=== PATIENT | male | born 1960 | race African-American/Black ===

== ENCOUNTER 2016-07-03 11:49 | Inpatient (IN) | payer MEDICAID, OTHER ==
[~2016-07-03] VITALS: Ht 167.6 cm; Wt 67.3 kg
[~2016-07-03 11:49] MED LIST: LISI-661 PO; OMEG1CAP12 PO; SIMV20 PO
[2016-07-03 12:18] LABS: BASOPHILS % (AUTO) 1.4 % (0.0-2.0); EOSINOPHILS % (AUTO) 4.3 % (1.0-6.0); HEMATOCRIT 43.4 % (41-53); HEMOGLOBIN 13.5 g/dL (13.5-17.5); LYMPHOCYTES # (AUTO) 2.9 K/uL (1.0-4.8); LYMPHOCYTES % (AUTO) 29.8 % (22.0-44.0); MEAN CORPUSCULAR HEMOGLOBIN 23.5 pg (26.0-34.0); MEAN CORPUSCULAR HGB CONC 31.1 G/dL (31.0-37.0); MEAN CORPUSCULAR VOLUME 76 fL (80-100); MONOCYTES # (AUTO) 0.7 K/uL (0.1-1.0); MONOCYTES % (AUTO) 7.3 % (2.0-9.0); NEUTROPHILS # (AUTO) 5.5 K/uL (1.8-7.7); NEUTROPHILS % (AUTO) 57.2 % (40.0-70.0); PLATELET COUNT (AUTO) 278 K/uL (150-450); RED BLOOD CELL COUNT(AUTO) 5.74 MIL/uL (4.50-5.90); RED CELL DISTRIBUTION WIDTH 14.4 % (11.5-14.5); WHITE BLOOD COUNT (AUTO) 9.6 K/uL (4.5-11.0)
[2016-07-03 12:27] LABS: ANION GAP 13 mmol/L (8-16); CALCIUM, TOTAL 9.3 mg/dL (8.8-10.5); CARBON DIOXIDE 24 mmol/L (22-29); CHLORIDE 106 mmol/L (98-107); GLOMERULAR FILTR. RATE CALC > 60 mL/min (>60); POTASSIUM 4.5 mmol/L (3.5-5.1); SODIUM SERUM 143 mmol/L (136-145); UREA NITROGEN, BLOOD 12 mg/dL (7-18)
[2016-07-03 12:32] LABS: GLUCOSE,POINT OF CARE 120 MG/DL (70-110)
[2016-07-03 12:33] LABS: ALANINE AMINOTRANSFERASE 28 U/L (12-78); ALBUMIN 4.2 g/dL (3.4-5.0); ASPARTATE AMINOTRANSFERASE 20 U/L (15-37); BILIRUBIN,TOTAL 0.5 mg/dL (0.1-1.0); TOTAL PROTEIN, SERUM 7.8 g/dL (6.4-8.2)
[2016-07-03] MEDS ORDERED: ZOLPIDEM TARTRATE 10 MG TABLET PO PRN (12:45)
[2016-07-03 18:20] VITALS: BP 146/86
[2016-07-04 08:30] VITALS: BP 132/76
[2016-07-04] MEDS: LORazepam 2 MG TABLET PO PRN (08:52)
[2016-07-04] MEDS: HALOPERIDOL 5 MG TABLET PO PRN (08:52)
[2016-07-04] MEDS: LISINOPRIL 10 MG TABLET PO SCH (15:25)
[2016-07-04] MEDS: FISH OIL/OMEGA-3 FATTY ACIDS 500 MG CAPSULE PO SCH (15:30)
[2016-07-04 19:32] VITALS: BP 129/79
[2016-07-04] MEDS: SIMVASTATIN 20 MG TABLET PO SCH (20:48)
[2016-07-05 07:38] LABS: CHOL/HDL RATIO 4.3 (4.2-7.3)
[2016-07-05 08:01] VITALS: BP 108/68
[2016-07-05] MEDS: LISINOPRIL 10 MG TABLET PO SCH (08:46)
[2016-07-05] MEDS: ESCITALOPRAM OXALATE 10 MG TABLET PO SCH (08:46)
[2016-07-05] MEDS: FISH OIL/OMEGA-3 FATTY ACIDS 500 MG CAPSULE PO SCH (08:47)
[2016-07-05] MEDS: ARIPiprazole 10 MG TABLET PO SCH (08:47)
[2016-07-05 18:25] VITALS: BP 110/71
[2016-07-05] MEDS: SIMVASTATIN 20 MG TABLET PO SCH (20:55)
[2016-07-05] MEDS: LORazepam 2 MG TABLET PO PRN (20:55)
[2016-07-06 08:01] VITALS: BP 114/99
[2016-07-06] MEDS: LISINOPRIL 10 MG TABLET PO SCH (09:18)
[2016-07-06] MEDS: ARIPiprazole 10 MG TABLET PO SCH (09:18)
[2016-07-06] MEDS: ESCITALOPRAM OXALATE 10 MG TABLET PO SCH (09:18)
[2016-07-06] MEDS: FISH OIL/OMEGA-3 FATTY ACIDS 500 MG CAPSULE PO SCH (09:19)
[2016-07-06] MEDS: LORazepam 2 MG TABLET PO PRN (16:04)
[2016-07-06] MEDS: GABAPENTIN 100 MG CAPSULE PO SCH (16:04)
[2016-07-06] MEDS: HALOPERIDOL 5 MG TABLET PO PRN (16:04)
[2016-07-06] MEDS: SIMVASTATIN 20 MG TABLET PO SCH (20:32)
[2016-07-06 20:56] VITALS: BP 116/89
[2016-07-07 06:14] VITALS: BP 140/76
[2016-07-07 08:30] VITALS: BP 118/76
[2016-07-07] MEDS: ESCITALOPRAM OXALATE 10 MG TABLET PO SCH (09:03)
[2016-07-07] MEDS: GABAPENTIN 100 MG CAPSULE PO SCH ×3 (09:03→15:59)
[2016-07-07] MEDS: ARIPiprazole 10 MG TABLET PO SCH (09:03)
[2016-07-07] MEDS: FISH OIL/OMEGA-3 FATTY ACIDS 500 MG CAPSULE PO SCH (09:03)
[2016-07-07] MEDS: LISINOPRIL 10 MG TABLET PO SCH (09:04)
[2016-07-07 16:30] VITALS: BP 128/78
[2016-07-07] MEDS: SIMVASTATIN 20 MG TABLET PO SCH (20:19)
[2016-07-08 06:52] VITALS: BP 138/80
[2016-07-08 08:05] VITALS: BP 146/78
[2016-07-08] MEDS: ARIPiprazole 10 MG TABLET PO SCH (09:02)
[2016-07-08] MEDS: FISH OIL/OMEGA-3 FATTY ACIDS 500 MG CAPSULE PO SCH (09:02)
[2016-07-08] MEDS: ESCITALOPRAM OXALATE 20 MG TABLET PO SCH (09:03)
[2016-07-08] MEDS: GABAPENTIN 100 MG CAPSULE PO SCH ×3 (09:03→16:03)
[2016-07-08] MEDS: LISINOPRIL 10 MG TABLET PO SCH (09:03)
[2016-07-08 18:41] VITALS: BP 153/88
[2016-07-08] MEDS: SIMVASTATIN 20 MG TABLET PO SCH (20:05)
[2016-07-09 06:21] VITALS: BP 132/83
[2016-07-09 08:36] VITALS: BP 145/76
[2016-07-09] MEDS: ARIPiprazole 10 MG TABLET PO SCH (08:39)
[2016-07-09] MEDS: GABAPENTIN 100 MG CAPSULE PO SCH ×3 (08:39→18:36)
[2016-07-09] MEDS: LISINOPRIL 10 MG TABLET PO SCH (08:39)
[2016-07-09] MEDS: ESCITALOPRAM OXALATE 20 MG TABLET PO SCH (08:39)
[2016-07-09] MEDS: FISH OIL/OMEGA-3 FATTY ACIDS 500 MG CAPSULE PO SCH (08:39)
[2016-07-09 17:51] VITALS: BP 136/82
[2016-07-09] MEDS: SIMVASTATIN 20 MG TABLET PO SCH (20:36)
[2016-07-10 08:15] VITALS: BP 152/90
[2016-07-10] MEDS: GABAPENTIN 100 MG CAPSULE PO SCH ×3 (09:46→17:16)
[2016-07-10] MEDS: LISINOPRIL 10 MG TABLET PO SCH (09:46)
[2016-07-10] MEDS: ESCITALOPRAM OXALATE 20 MG TABLET PO SCH (09:46)
[2016-07-10] MEDS: ARIPiprazole 10 MG TABLET PO SCH (09:46)
[2016-07-10] MEDS: FISH OIL/OMEGA-3 FATTY ACIDS 500 MG CAPSULE PO SCH (09:46)
[2016-07-10 18:32] VITALS: BP 139/82
[2016-07-10] MEDS: SIMVASTATIN 20 MG TABLET PO SCH (20:08)
[2016-07-11 05:16] VITALS: BP 144/88
[2016-07-11] MEDS: ARIPiprazole 10 MG TABLET PO SCH (08:04)
[2016-07-11] MEDS: FISH OIL/OMEGA-3 FATTY ACIDS 500 MG CAPSULE PO SCH (08:04)
[2016-07-11] MEDS: GABAPENTIN 100 MG CAPSULE PO SCH ×2 (08:05→13:23)
[2016-07-11] MEDS: ESCITALOPRAM OXALATE 20 MG TABLET PO SCH (08:05)
[2016-07-11] MEDS: LISINOPRIL 10 MG TABLET PO SCH (08:05)
[2016-07-11 09:45] VITALS: BP 138/86
[2016-07-11] MEDS ORDERED: ESCI20TA PO (10:22)
[2016-07-11] MEDS ORDERED: ARIP10TA14 PO (10:23)
[2016-07-11] MEDS ORDERED: GABA-529 PO (10:23)
== END 2016-07-11 15:10 | disposition home or self-care (01) | DRG 750 ==
LOC: EMS 11:50 → 3EI 17:27
DX: F25.0 Schizoaffective disorder, bipolar type (principal); R45.851 Suicidal ideations; M41.9 Scoliosis, unspecified; R45.850 Homicidal ideations; I10 Essential (primary) hypertension; E78.00 Pure hypercholesterolemia, unspecified; F43.10 Post-traumatic stress disorder, unspecified; G89.29 Other chronic pain; M54.9 Dorsalgia, unspecified; E78.5 Hyperlipidemia, unspecified; M54.30 Sciatica, unspecified side; F17.210 Nicotine dependence, cigarettes, uncomplicated; F15.90 Other stimulant use, unspecified, uncomplicated; F12.90 Cannabis use, unspecified, uncomplicated; F14.90 Cocaine use, unspecified, uncomplicated; F11.90 Opioid use, unspecified, uncomplicated; Z71.51 Drug abuse counseling and surveillance of drug abuser; Z79.899 Other long term (current) drug therapy
CPT/HCPCS: 82962; 93005; 99285; G0480

== ENCOUNTER 2024-12-10 09:44 | Emergency (ER) | payer MEDICAID, OTHER ==
[~2024-12-10] VITALS: Ht 167.6 cm; Wt 75.0 kg
[~2024-12-10 09:44] MED LIST changes: +ARIP10TA38 PO; +ESCI20TA87 PO; +GABA-1216 PO; -LISI-661 PO; +LISI-893 PO; +SIMV-260 PO; -SIMV20 PO
[2024-12-10 10:11] VITALS: BP 126/75; PULSE 57; RESP 18; TEMP 98.5; O2SAT 97
[2024-12-10] MEDS: DEXAMETHASONE SOD PHOS 4 MG/ML 5 ML VIAL IVP ONE (12:06)
[2024-12-10] MEDS: KETOROLAC TROMETHAMINE 30 MG/ML VIAL IVP ONE (12:06)
[2024-12-10] MEDS: CefTRIAXone 1 GM/DEXTROSE 50 ML IV ONE (12:07)
== END 2024-12-10 14:15 | disposition home or self-care (01) ==
LOC: EMS 09:50
DX: J36 Peritonsillar abscess (principal); F12.90 Cannabis use, unspecified, uncomplicated; F15.90 Other stimulant use, unspecified, uncomplicated; F14.90 Cocaine use, unspecified, uncomplicated; E78.00 Pure hypercholesterolemia, unspecified; F20.9 Schizophrenia, unspecified; F31.9 Bipolar disorder, unspecified; F41.9 Anxiety disorder, unspecified; I10 Essential (primary) hypertension; F17.210 Nicotine dependence, cigarettes, uncomplicated; Z98.890 Other specified postprocedural states; Z79.899 Other long term (current) drug therapy
CPT/HCPCS: 99284; 96365; 96375; J1885; J0696; J1100